=== PATIENT | female | born 1995 | race American Indian/Alaskan Native ===

== ENCOUNTER 2018-06-24 23:50 | Emergency (ER) | payer MEDICAID, OTHER ==
[2018-06-24 23:58] VITALS: BP 131/82
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
[2018-06-25] MEDS ORDERED: NORCO 5/325 PO ONE (00:53)
[2018-06-25] MEDS ORDERED: FLEXERIL PO ONE (00:53)
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
== END 2018-06-25 03:05 | disposition home or self-care (01) ==
LOC: ED 23:50
DX: M54.6 Pain in thoracic spine (principal); M54.5 Low back pain; F90.9 Attention-deficit hyperactivity disorder, unspecified type; V89.2XXA Person injured in unspecified motor-vehicle accident, traffic, initial encounter; Y93.89 Activity, other specified; Y92.488 Other paved roadways as the place of occurrence of the external cause; Y99.8 Other external cause status
CPT/HCPCS: 72072; 72100; 99283